=== PATIENT | male | born 1930 | race Caucasian/White ===

== ENCOUNTER 2018-03-19 19:21 | Inpatient (IN) | payer OTHER ==
[~2018-03-19] VITALS: Ht 182.9 cm; Wt 52.2 kg
[~2018-03-19 19:21] MED LIST: ADVAIR 250-501 EACH; ATORVASTATIN CA10 MG PO; ATORVASTATIN CA20 MG PO; BACTRIM DS TAB1 EACH PO; CEFPODOXIME PR100 MG PO; FINASTERIDE5 MG PO; GABAPENTIN400 MG PO; HYDROCORTISONE20 MG PO; K-DUR20 ME1 GT; LASIX20 MG PO; LEVAQUIN500 MG PO; LYRICA25 MG PO; METHIMAZOLE10 MG PO; OMEPRAZOLE40 MG PO; ONDANSETRO4 MG/UDTAB SL; PANTOPRAZOLE SO40 MG PO; POTASSIUM CHLO20 ME1 PO; PROPRANOLOL HCL20 MG PO; REGLAN10 MG PO; ROPINIROLE HC0.25 MG PO; SINEMET 25-1001 EACH PO; SULFAMETHOXAZO1 EAC1 PO; TYLENOL WITH C1 EACH PO; WARFARIN SODIU7.5 MG PO; WARFARIN SODIUM PO; Z FERROUS GLUCON PO; Z NEURONTIN PO; Z REQUIP PO; Z.0.ADVAIR 250-501 E IH; Z.0.COUMADIN7.5 MG PO; Z.0.FINASTERIDE5 MG PO; Z.0.LASIX20 MG PO; Z.0.NEURONTIN400 MG PO; Z.0.ULTRAM50 MG PO; [UNRECOGNIZED DRUG - OTHER] OP; [UNRECOGNIZED DRUG - OTHER] PO
--- OUTSIDE RECORDS SUMMARY | 2018-03-19 19:25 | XMS REPORT | Clinical Summary ---
Author Author YAHAIRA Juxinli [facility] [employer] [facility] Address Unknown Phone Unavailable Care Team Providers Care A R Collections Rep Name Role Phone Kev Crowell MD PCP Unavailable YolynBoston barba Unavailable Allergies No Known Allergies Medications End Date Status Medication Sig Dispensed Refills Start Date Active furosemide (LASIX) 20 MG Take 20 mg by 0 tablet mouth daily . Active HYDROcodone-acetaminophen Take 1 tablet 0 (NORCO 5-325) 5-325 mg by mouth per tablet every 6 (six) hours as needed for Pain. Active rOPINIRole (REQUIP) 0.25 Take 0.75 mg 0 MG tablet by mouth nightly. Active finasteride (PROSCAR) 5 Take 5 mg by 0 mg tablet mouth daily. Active carbidopa-levodopa Take 1 tablet 0 (SINEMET CR) 25-100 mg by mouth 2 per tablet (two) times daily . Active pantoprazole (PROTONIX) Take 40 mg by 0 40 MG tablet mouth daily. Active atorvastatin (LIPITOR) 20 Take 20 mg by 0 MG tablet mouth daily. Active mirabegron (MYRBETRIQ) 50 Take 50 mg by 0 mg Tb24 ER tablet mouth daily. Active apixaban (ELIQUIS) 2.5 mg Take 2.5 mg 0 Tab tablet by mouth 2 (two) times daily. Active propranolol (INDERAL) 40 Take 1 tablet 60 tablet 0 03/10/201 MG tablet (40 mg total) 8 by mouth 2 (two) times daily. Active methIMAzole (TAPAZOLE) 10 Take 0.5 30 tablet 0 03/10/201 MG tablet tablets (5 mg 8 total) by mouth daily. 03/07/2018 Discontinued gabapentin (NEURONTIN) Take 800 mg 0 400 MG capsule by mouth 2 (two) times daily . 03/07/2018 Discontinued calcium carbonate-vitamin Take 1 tablet 0 D2 500 mg(1,250mg) -200 by mouth unit tablet daily. 03/07/2018 Discontinued potassium chloride SA Take 20 mEq 0 (K-DUR,KLOR-CON) 20 MEQ by mouth tablet daily. 03/07/2018 Discontinued clotrimazole-betamethason Apply 0 e (LOTRISONE) 1-0.05 % topically 2 lotion (two) times daily. 03/07/2018 Discontinued levalbuterol (XOPENEX Inhale 1 puff 0 HFA) 45 mcg/actuation by mouth via inhaler inhaler every 6 (six) hours as needed for Wheezing. 03/07/2018 Discontinued phenazopyridine Take 200 mg 0 (PYRIDIUM) 200 MG tablet by mouth 3 (three) times daily as needed for Pain. 03/07/2018 Discontinued silver sulfADIAZINE Apply 0 (SILVADENE, SSD) 1 % topically cream daily. 03/07/2018 Discontinued TiZANidine (ZANAFLEX) 2 Take 2 mg by 0 MG capsule mouth 3 (three) times daily. 03/07/2018 Discontinued triamcinolone (KENALOG) Apply 0 0.1 % topical cream topically 2 (two) times daily to affected area. . 03/07/2018 Discontinued zinc oxide 20 % ointment Apply 0 topically as needed for Dry Skin. 03/07/2018 Discontinued warfarin (COUMADIN) 7.5 Take 1 tablet 1 tablet 0 04/08/201 MG tablet (7.5 mg 5 total) by mouth daily Restart Warfarin in 3 days if urine is visibly clear/free of blood.. 03/10/2018 Discontinued methIMAzole (TAPAZOLE) 10 Take 5 mg by 0 MG tablet mouth daily. 03/10/2018 Discontinued propranolol (INDERAL) 20 Take 20 mg by 0 MG tablet mouth 2 (two) times daily. Active Problems Problem Noted Date Graves disease 03/08/2018 Decubitus ulcer of sacral region, stage 2 03/08/2018 Severe protein-calorie malnutrition 03/08/2018 Atrial fibrillation with RVR 03/07/2018 Pulmonary fibrosis 03/07/2018 Gastroesophageal reflux disease without esophagitis 03/07/2018 Parkinson's disease 03/07/2018 Dysphonia 03/07/2018 Compression fracture of T12 vertebra 09/03/2013 Spinal stenosis of lumbar region 09/03/2013 AAA (abdominal aortic aneurysm) without rupture 09/03/2013 Essential tremor 09/03/2013 CRI (chronic renal insufficiency) 09/03/2013 Lumbago 09/02/2013 Atrial fibrillation 09/02/2013 COPD (chronic obstructive pulmonary disease) 09/02/2013 Dementia 09/02/2013 Diabetes type 2, controlled 09/02/2013 Gait disorder Encounters Care Team Description Date Type Specialty Salma, DO Janine Auguste Thai Duc, MD Atrial fibrillation with RVR (HCC) (Primary Dx); Atrial fibrillation, unspecified type (HCC); Dementia without behavioral disturbance, unspecified dementia type; AAA (abdominal aortic aneurysm) without rupture (HCC); Chronic renal impairment, unspecified CKD stage; Gait disorder 03/07/2018 Hospital Cardiology - Encounter 03/10/2018 03/07/2018 Travel 03/07/2018 Orders Only General Internal Medicine after 03/18/2017 Social History Date Tobacco Use Types Packs/Day Years Used Never Smoker Smokeless Tobacco: Never Used Alcohol Use Drinks/Week oz/Week Comments No Sex Assigned at Date Recorded Not on file Industry Job Start Date Occupation Not on file Not on file Not on file Travel End Travel History Travel Start No recent travel history available. Last Filed Vital Signs Time Taken Vital Sign Reading 03/10/2018 7:21 AM MANUFACTURING EXECUTIVE Blood Pressure 110/62 03/10/2018 7:21 AM MANUFACTURING EXECUTIVE Pulse 97 03/10/2018 7:21 AM MANUFACTURING EXECUTIVE Temperature 36.6 C (97.9 F) 03/10/2018 7:21 AM MANUFACTURING EXECUTIVE Respiratory Rate 20 03/10/2018 7:21 AM MANUFACTURING EXECUTIVE Oxygen Saturation 98% - Inhaled Oxygen - Concentration 03/07/2018 2:27 PM MANUFACTURING EXECUTIVE Weight 63.5 kg (140 lb) 03/07/2018 2:27 PM MANUFACTURING EXECUTIVE Height 177.8 cm (5' 10") 03/07/2018 2:27 PM MANUFACTURING EXECUTIVE Body Mass Index 20.09 Plan of Treatment Health Maintenance Due Date Last Done Comments INFLUENZA VACCINE 01/16/2018 Procedures Comments Procedure Name Priority Date/Time Associated Diagnosis RHYTHM STRIP - SCAN 03/14/2018 9:10 AM MANUFACTURING EXECUTIVE T4, FREE Routine 03/08/2018 12:03 AM MANUFACTURING EXECUTIVE HEPATIC FUNCTION PANEL Routine 03/08/2018 12:03 AM MANUFACTURING EXECUTIVE BASIC METABOLIC PANEL (7) Routine 03/08/2018 12:03 AM MANUFACTURING EXECUTIVE TROPONIN I STAT 03/08/2018 12:03 AM MANUFACTURING EXECUTIVE TSH/FREE T4 IF INDICATED Routine 03/08/2018 12:03 AM MANUFACTURING EXECUTIVE ED ECG INTERPRETATION Routine 03/07/2018 5:05 PM MANUFACTURING EXECUTIVE CRITICAL CARE Routine 03/07/2018 5:05 PM MANUFACTURING EXECUTIVE ECG 12-LEAD Routine 03/07/2018 4:16 PM MANUFACTURING EXECUTIVE ECG 12-LEAD Routine 03/07/2018 4:16 PM MANUFACTURING EXECUTIVE Procedure Note - Interface, External Ris In - 03/07/2018 8:06 PM MANUFACTURING EXECUTIVE Ventricula r Rate 112 BPM Atrial Rate 94 BPM QRS Duration 82 ms Q-T Interval 334 ms QTC Calculatio n(Bazett) 455 ms R Junction 20 degrees T Junction 21 degrees Atrial fibrillati on with rapid ventricula r response with premature ventricula r or aberrantly conducted complexes Anterior infarct (cited on or before 8) ST & T wave abnormalit y, consider lateral ischemia or digitalis effect Abnormal ECG When compared with ECG of 8 14:28, RSR' pattern in V1 is no longer Present XR CHEST 1 VIEW STAT 03/07/2018 PORTABLE/BEDSIDE 3:22 PM MANUFACTURING EXECUTIVE POCT-LACTIC ACID, VENOUS Routine 03/07/2018 3:14 PM MANUFACTURING EXECUTIVE CBC W/PLT COUNT & AUTO STAT 03/07/2018 DIFFERENTIAL 3:09 PM MANUFACTURING EXECUTIVE BASIC METABOLIC PANEL (7) STAT 03/07/2018 3:09 PM MANUFACTURING EXECUTIVE B-TYPE NATRIURETIC FACTOR STAT 03/07/2018 (BNP) 3:09 PM MANUFACTURING EXECUTIVE TROPONIN I STAT 03/07/2018 3:09 PM MANUFACTURING EXECUTIVE CBC W/PLT COUNT & AUTO STAT 03/07/2018 DIFFERENTIAL 3:09 PM MANUFACTURING EXECUTIVE ECG 12-LEAD Routine 03/07/2018 2:28 PM MANUFACTURING EXECUTIVE ECG 12-LEAD Routine 03/07/2018 2:28 PM MANUFACTURING EXECUTIVE Procedure Note - Interface, External Ris In - 03/07/2018 7:05 PM MANUFACTURING EXECUTIVE Ventricula r Rate 128 BPM Atrial Rate 129 BPM QRS Duration 84 ms Q-T Interval 316 ms QTC Calculatio n(Bazett) 461 ms R Junction 92 degrees T Junction -39 degrees Atrial fibrillati on with rapid ventricula r response Rightward axis RSR' or QR pattern in V1 suggests right ventricula r conduction delay Cannot rule out Anterior infarct , age undetermin ed Marked ST abnormalit y, possible inferior subendocar dial injury Abnormal ECG When compared with ECG of 5 16:22, Vent. rate has increased BY 70 BPM RSR' pattern in V1 has replaced Incomplete left bundle branch block after 03/18/2017 Results * RHYTHM STRIP - SCAN (03/14/2018 9:10 AM MANUFACTURING EXECUTIVE) Narrative Performed At * TSH/Free T4 If Indicated (03/08/2018 12:03 AM MANUFACTURING EXECUTIVE) TSH 0.00 (L) 0.35 - 4.94 uIU/mL [facility] Specimen Blood - Arm, Right Performing Organization Address [facility] Phone Number [facility] [address] [place] [address] [phone] [place] [address] * Troponin I (03/08/2018 12:03 AM MANUFACTURING EXECUTIVE) Only the most recent of 2 results within the time period is included. Troponin I 0.02 0.00 - 0.03 ng/mL [facility] Specimen Blood - Arm, Right Performing Organization Address [facility] Phone Number [facility] [address] [place] [address] [facility] * T4, free (03/08/2018 12:03 AM MANUFACTURING EXECUTIVE) Free T4 2.84 (H) 0.70 - 1.48 ng/dL [facility] Specimen Blood - Arm, Right Performing Organization Address [facility] Phone Number [facility] [address] [place] [address] [phone] [place] [address] * Hepatic function panel (03/08/2018 12:03 AM MANUFACTURING EXECUTIVE) Protein, Total 5.9 (L) 6.0 - 8.3 gm/dL [facility] Albumin 3.0 (L) 3.5 - 5.0 g/dL [facility] Total Bilirubin 1.2 0.2 - 1.2 mg/dL [facility] Bilirubin, Direct 0.8 (H) 0.1 - 0.5 mg/dL [facility] Alkaline Phosphatase 72 40 - 150 U/L [facility] AST 18 5 - 34 U/L [facility] ALT <6 (L) 6 - 55 U/L [facility] Specimen Blood - Arm, Right Performing Organization Address City/State/Zipcode Phone Number [facility] [address] [place] [address] [phone] [place] [address] * Basic Metabolic Panel (03/08/2018 12:03 AM MANUFACTURING EXECUTIVE) Only the most recent of 2 results within the time period is included. Sodium 136 136 - 145 meq/L [facility] Potassium 3.7 3.5 - 5.1 meq/L [facility] Chloride 104 98 - 107 meq/L [facility] CO2 25 22 - 29 meq/L [facility] BUN 32 (H) 7 - 21 mg/dL [facility] Creatinine 0.83 0.57 - 1.25 mg/dL [facility] Glucose 114 (H) 70 - 105 mg/dL [facility] Calcium 10.0 8.4 - 10.2 mg/dL [facility] EGFR 88Comment: ESTIMATED GFR IS mL/min/1.73 sq m [facility] NOT ACCURATE CREATININE [facility] CLEARANCE IN PREDICTING GLOMERULAR FILTRATION RATE. ESTIMATED GFR IS NOT APPLICABLE FOR DIALYSIS PATIENTS. Specimen Blood - Arm, Right Performing Organization Address City/State/Zipcode Phone Number [facility] [address] [place] [address] [facility] * ECG/EKG Interpretation (03/07/2018 5:05 PM MANUFACTURING EXECUTIVE) Narrative Performed At Lily Marsh DO 03/12/2018 10:06 PM ECG/EKG Interpretation Date/Time: 03/12/2018 10:06 PM Performed by: Lily Marsh DO Authorized by: Daryn Mehta MD The ECG was interpreted by ED physician. This ECG was not compared with previous ECG(s).The ECG is interpreted as atrial fibrillation. Rate is tachycardic. T waves abnormal. Junction is normal. Other findings: no other findings. Right sided lead use: right-sided leads not used. Left sided lead use: Posterior leads were not used. Clinical Impression: abnormal ECGECG reviewed and does not meet STEMI criteria. * CRITICAL CARE (03/07/2018 5:05 PM MANUFACTURING EXECUTIVE) Narrative Performed At Lily Marsh DO 03/12/2018 10:06 PM Critical Care Performed by: Lily Marsh DO Authorized by: Daryn Mehta MD Total critical care time: 60 minutes Critical care time was exclusive of separately billable procedures and treating other patients. Critical care was necessary to treat or prevent imminent or life-threatening deterioration of the following conditions: cardiac failure, shock, circulatory failure and renal failure. Critical care was time spent personally by me on the following activities: blood draw for specimens, discussions with consultants, gastric intubation, evaluation of patient's response to treatment, obtaining history from patient or surrogate, ordering and review of laboratory studies, pulse oximetry, ordering and performing treatments and interventions, examination of patient, discussions with primary provider, ordering and review of radiographic studies, re-evaluation of patient's condition, transcutaneous pacing and review of old charts. Comments: afib with RVR and sob sent from clinic now. * ECG 12 lead (03/07/2018 4:16 PM MANUFACTURING EXECUTIVE) Only the most recent of 2 results within the time period is included. Narrative Performed At Ventricular Rate 112 BPM GE MUSE Atrial Rate 94 BPM QRS Duration 82 ms Q-T Interval 334 ms QTC Calculation(Bazett) 455 ms R Junction 20 degrees T Junction 21 degrees Atrial fibrillation with rapid ventricular response with premature ventricular or aberrantly conducted complexes Anterior infarct (cited on or before 07-MAR-2018) ST & T wave abnormality, consider lateral ischemia Abnormal ECG When compared with ECG of 07-MAR-2018 14:28, RSR' pattern in V1 is no longer Present Confirmed by Nicol TAI MICHAEL ([id number]) on 03/08/2018 7:01:30 AM Procedure Note Interface, External Ris In - 03/08/2018 7:01 AM MANUFACTURING EXECUTIVE Ventricular Rate 112 BPM Atrial Rate 94 BPM QRS Duration 82 ms Q-T Interval 334 ms QTC Calculation(Bazett) 455 ms R Junction 20 degrees T Junction 21 degrees Atrial fibrillation with rapid ventricular response with premature ventricular or aberrantly conducted complexes Anterior infarct (cited on or before 07-MAR-2018) ST & T wave abnormality, consider lateral ischemia Abnormal ECG When compared with ECG of 07-MAR-2018 14:28, RSR' pattern in V1 is no longer Present Confirmed by Nicol TAI MICHAEL ([id number]) on 03/08/2018 7:01:30 AM Performing Organization Address City/State/Zipcode Phone Number [facility] * XR chest 1 view portable / bedside (03/07/2018 3:22 PM MANUFACTURING EXECUTIVE) Narrative Performed At FINAL REPORT [employer] AP chest HISTORY: Generalized weakness COMPARISON: 08/23/2014 IMPRESSION: Cardiomegaly. Diffuse prominence of interstitial markings similar to previous. No focal infiltrate. No large effusion. No pneumothorax. Signed: Roxi Bravo MD Report Verified Date/Time:03/07/2018 15:37:36 Reading Location: [address] Radiology Reading Room Procedure Note Interface, External Ris In - 03/07/2018 3:39 PM MANUFACTURING EXECUTIVE FINAL REPORT AP chest HISTORY: Generalized weakness COMPARISON: 08/23/2014 IMPRESSION: Cardiomegaly. Diffuse prominence of interstitial markings similar to previous. No focal infiltrate. No large effusion. No pneumothorax. Signed: Roxi Bravo MD Report Verified Date/Time: 03/07/2018 15:37:36 Reading Location: [address] Radiology Reading Room Performing Organization Address City/State/Zipcode Phone Number [facility] * POC-Lactic Acid, Venous (03/07/2018 3:14 PM MANUFACTURING EXECUTIVE) POC-Lactic Acid, Venous 1.5Comment: TESTED AT [facility] 0.9 - 1.7 mmol/L [place] [id number] [facility] Specimen Blood Performing Organization Address City/State/Zipcode [place] [address] [facility] * CBC with platelet count + automated diff (03/07/2018 3:09 PM MANUFACTURING EXECUTIVE) WBC 7.2 3.5 - 10.5 K/L [facility] RBC 4.03 (L) 4.63 - 6.08 M/L [facility] Hemoglobin 13.0 (L) 13.7 - 17.5 GM/DL [facility] Hematocrit 40.4 40.1 - 51.0 % [facility] MCV 100.2 (H) 79.0 - 92.2 fL [facility] MCH 32.3 (H) 25.7 - 32.2 pg [facility] MCHC 32.2 (L) 32.3 - 36.5 GM/DL [facility] RDW 12.7 11.6 - 14.4 % [facility] Platelets 200 150 - 450 K/CU MM [facility] MPV 9.7 9.4 - 12.4 fL [facility] nRBC 0 0 - 0 /100 WBC [facility] % Neutros 72 % [facility] % Lymphs 18 % [facility] % Monos 9 % [facility] % Eos 1 % [facility] % Baso 0 % [facility] # Neutros 5.14 1.78 - 5.38 K/L [facility] # Lymphs 1.27 (L) 1.32 - 3.57 K/L [facility] # Monos 0.64 0.30 - 0.82 K/L [facility] # Eos 0.08 0.04 - 0.54 K/L [facility] # Baso 0.02 0.01 - 0.08 K/L [facility] Immature 0 0 - 1 % [facility] Granulocytes-Relative [facility] Specimen Blood - Arm, Right Performing Organization Address City/[facility]/Zipcode Phone Number [facility] [address] [place] [address] [facility] * B-type Natriuretic Factor (BNP) (03/07/2018 3:09 PM MANUFACTURING EXECUTIVE) BNP 284 (H) 0 - 100 pg/mL [facility] Specimen Blood - Arm, Right Performing Organization Address City/State/Zipcode Phone Number [facility] [address] [place] [address] [facility] after 03/18/2017 Insurance Payer Benefit Subscriber ID Type Phone Address Plan / Group [employer] [facility] Advance Directives For more information, please contact: [address] [address] Date Inactivated Comments Code Status Date Activated Partial Code 03/07/2018 6:23 PM This code status was determined by: Patient Drug Protocol After Arrest Occurs? No Mechanical Ventilation with Intubation? No Bag/Mask? No Internal/External Pacemaker? No Transfer to Critical Care? No Chest Compressions? No Defibrillation/Cardioversion? No 03/07/2018 6:23 PM Full Code 03/07/2018 4:58 PM This code status was determined by: Patient 09/05/2013 4:20 PM All possible means of support, including: cardiac massage, mechanical ventilation, and defibrillation will be used to support life. Code ONE 09/03/2013 12:38 AM
--- OUTSIDE RECORDS SUMMARY | 2018-03-19 19:25 | XMS REPORT ---
Author Author [facility] Address Unknown Phone Unavailable Care Team Providers Care Remote Sensing Specialist Name Role Phone SUSANNAHJUANITA Unavailable Unavailable Problems This patient has no known problems. Allergies, Adverse Reactions, Alerts This patient has no known allergies or adverse reactions. Medications This patient has no known medications. Results Test Description Test Time Test Comments Text Results Atomic Results Result Comments T4, FREE 2018-03-08 01:32:00 FREE T4 (BEAKER) (test ddac=229) 2.84 ng/dL 0.70-1.48 TSH/FREE T4 IF [id number] 00:56:00* Test Item Value Reference Range Comments THYROID STIMULATING HORMONE (BEAKER) (test gajz=443) 0.00 uIU/mL 0.35-4.94 TROPONIN [id number] 00:39:00* Test Item Value Reference Range Comments TROPONIN I (BEAKER) (test dqyt=046) 0.02 ng/mL 0.00-0.03 BASIC METABOLIC [id number] 00:33:00* Test Item Value Reference Range Comments SODIUM (BEAKER) (test mxky=854) 136 meq/L 136-145 POTASSIUM (BEAKER) (test uecq=067) 3.7 meq/L 3.5-5.1 CHLORIDE (BEAKER) (test vfml=048) 104 meq/L 98-107 CO2 (BEAKER) (test noqa=816) 25 meq/L 22-29 BLOOD UREA NITROGEN (BEAKER) (test ntfh=358) 32 mg/dL 7-21 CREATININE (BEAKER) (test jzbn=033) 0.83 mg/dL 0.57-1.25 GLUCOSE RANDOM (BEAKER) (test azhl=026) 114 mg/dL 70-105 CALCIUM (BEAKER) (test zoet=079) 10.0 mg/dL 8.4-10.2 EGFR (BEAKER) (test ngqu=2949) 88 mL/min/1.73 sq m ESTIMATED GFR IS NOT ACCURATE CREATININE CLEARANCE IN PREDICTING GLOMERULAR FILTRATION RATE. ESTIMATED GFR IS NOT APPLICABLE FOR DIALYSIS PATIENTS. HEPATIC FUNCTION [id number] 00:33:00* Test Item Value Reference Range Comments TOTAL PROTEIN (BEAKER) (test lxas=844) 5.9 gm/dL 6.0-8.3 ALBUMIN (BEAKER) (test snea=9244) 3.0 g/dL 3.5-5.0 BILIRUBIN TOTAL (BEAKER) (test nult=161) 1.2 mg/dL 0.2-1.2 BILIRUBIN DIRECT (BEAKER) (test kool=111) 0.8 mg/dL 0.1-0.5 ALKALINE PHOSPHATASE (BEAKER) (test mtyk=376) 72 U/L 40-150 AST (SGOT) (BEAKER) (test jfhb=462) 18 U/L 5-34 ALT (SGPT) (BEAKER) (test xhrt=553) < U/L 6-55 B-TYPE NATRIURETIC FACTOR (BNP)2018-03-07 15:41:00* Test Item Value Reference Range Comments B-TYPE NATRIURETIC PEPTIDE (BEAKER) (test sbku=165) 284 pg/mL 0-100 TROPONIN [id number] 15:40:00* Test Item Value Reference Range Comments TROPONIN I (BEAKER) (test iqah=092) 0.01 ng/mL 0.00-0.03 RAD, CHEST, 1 VIEW, NON [id number] 15:37:00Reason for exam:->GENERALIZED WEAKNESS, NOT ASSOCIATED WITH EXTREMITIESShould this be performed at the bedside?->YesFINAL REPORT AP chest HISTORY: Generalized weakness COMPARISON: 08/23/2014 IMPRESSION:Cardiomegaly. Diffuse prominence of interstitial markings similar to previous. No focal infiltrate. No large effusion. No pneumothorax. Signed: Roxi Wells MDReport Verified Date/Time: 03/07/2018 15:37:36 Reading Location: [address] Radiology Reading Room C METABOLIC [id number] 15:33:00* Test Item Value Reference Range Comments SODIUM (BEAKER) (test rhhl=749) 137 meq/L 136-145 POTASSIUM (BEAKER) (test sblc=460) 4.3 meq/L 3.5-5.1 CHLORIDE (BEAKER) (test slgj=874) 103 meq/L 98-107 CO2 (BEAKER) (test uyro=754) 26 meq/L 22-29 BLOOD UREA NITROGEN (BEAKER) (test jfot=623) 34 mg/dL 7-21 CREATININE (BEAKER) (test bjfn=345) 0.93 mg/dL 0.57-1.25 GLUCOSE RANDOM (BEAKER) (test qhqz=290) 123 mg/dL 70-105 CALCIUM (BEAKER) (test zxpl=332) 10.5 mg/dL 8.4-10.2 EGFR (BEAKER) (test egzu=7241) 77 mL/min/1.73 sq m ESTIMATED GFR IS NOT ACCURATE CREATININE CLEARANCE IN PREDICTING GLOMERULAR FILTRATION RATE. ESTIMATED GFR IS NOT APPLICABLE FOR DIALYSIS PATIENTS. CBC W/PLT COUNT & AUTO [id number] 15:18:00* Test Item Value Reference Range Comments WHITE BLOOD CELL COUNT (BEAKER) (test enfd=853) 7.2 K/ L 3.5-10.5 RED BLOOD CELL COUNT (BEAKER) (test qrrr=385) 4.03 M/ L 4.63-6.08 HEMOGLOBIN (BEAKER) (test ambg=375) 13.0 GM/DL 13.7-17.5 HEMATOCRIT (BEAKER) (test bldy=124) 40.4 % 40.1-51.0 MEAN CORPUSCULAR VOLUME (BEAKER) (test rcik=915) 100.2 fL 79.0-92.2 MEAN CORPUSCULAR HEMOGLOBIN (BEAKER) (test rjho=687) 32.3 pg 25.7-32.2 MEAN CORPUSCULAR HEMOGLOBIN CONC (BEAKER) (test otqa=816) 32.2 GM/DL 32.3-36.5 RED CELL DISTRIBUTION WIDTH (BEAKER) (test amdr=669) 12.7 % 11.6-14.4 PLATELET COUNT (BEAKER) (test obef=330) 200 K/CU MM 150-450 MEAN PLATELET VOLUME (BEAKER) (test qrfq=840) 9.7 fL 9.4-12.4 NUCLEATED RED BLOOD CELLS (BEAKER) (test bcww=920) 0 /100 WBC 0-0 NEUTROPHILS RELATIVE PERCENT (BEAKER) (test qddh=498) 72 % LYMPHOCYTES RELATIVE PERCENT (BEAKER) (test reer=635) 18 % MONOCYTES RELATIVE PERCENT (BEAKER) (test wbrf=798) 9 % EOSINOPHILS RELATIVE PERCENT (BEAKER) (test rvin=895) 1 % BASOPHILS RELATIVE PERCENT (BEAKER) (test vbqc=317) 0 % NEUTROPHILS ABSOLUTE COUNT (BEAKER) (test ckrf=993) 5.14 K/ L 1.78-5.38 LYMPHOCYTES ABSOLUTE COUNT (BEAKER) (test uszn=068) 1.27 K/ L 1.32-3.57 MONOCYTES ABSOLUTE COUNT (BEAKER) (test mojw=899) 0.64 K/ L 0.30-0.82 EOSINOPHILS ABSOLUTE COUNT (BEAKER) (test vdhe=822) 0.08 K/ L 0.04-0.54 BASOPHILS ABSOLUTE COUNT (BEAKER) (test tqsv=546) 0.02 K/ L 0.01-0.08 IMMATURE GRANULOCYTES-RELATIVE PERCENT (BEAKER) (test bkmm=0853) 0 % 0-1 POCT-LACTIC ACID, [id number] 15:17:00* Test Item Value Reference Range Comments POC-LACTIC ACID, VENOUS (BEAKER) (test mhsd=2886) 1.5 mmol/L 0.9-1.7 TESTED AT [facility] [address] [facility] [id number]
[2018-03-19] MEDS ORDERED: ONDANSETRON HCL INJ 2 MG/ML VIAL ONE (19:55)
[2018-03-19] MEDS ORDERED: SODIUM CHLORIDE 0.9% 1000ML 1,000 ML ONE (19:59)
[2018-03-19] MEDS ORDERED: SODIUM CHLORIDE 0.9% 1000ML 1,000 ML IV STA (20:02)
[2018-03-19] MEDS ORDERED: PANTOPRAZOLE 40 MG 10ML VIAL IV STA (20:02)
[2018-03-19] MEDS ORDERED: ONDANSETRON HCL INJ 2 MG/ML VIAL IV STA (20:02)
[2018-03-19 20:25] LABS: BASOPHILS % 0.1 % (0.0-1.0); HEMATOCRIT 41.9 % (38.2-49.6); LYMPHOCYTES # (AUTO) 1.3 (1.0-3.2); LYMPHOCYTES % 7.4 % (18.0-39.1); MEAN CORPUSCULAR HEMOGLOBIN 32.7 pg (28-32); MEAN CORPUSCULAR HGB CONC 33.4 g/dL (31-35); MEAN CORPUSCULAR VOLUME 97.9 fL (81-99); MONOCYTES # (AUTO) 1.2 (0.2-0.8); MONOCYTES % 7.1 % (4.4-11.3); NEUTROPHILS # (AUTO) 14.6 (2.1-6.9); NEUTROPHILS % 84.9 % (38.7-80.0); PLATELET COUNT 329 x10e3/uL (140-360); RED BLOOD COUNT 4.28 x10e6/uL (4.3-5.7); RED CELL DISTRIBUTION WIDTH 13.1 % (11.7-14.4)
[2018-03-19 20:34] LABS: INR 1.05; PROTHROMBIN TIME 14.7 seconds (11.9-14.5)
[2018-03-19 20:35] LABS: PARTIAL THROMBOPLASTIN TIME 25.8 seconds (23.8-35.5)
[2018-03-19 20:41] LABS: ALBUMIN 3.1 g/dL (3.5-5.0); ALBUMIN/GLOBULIN RATIO 0.7 (0.8-2.0); ANION GAP 22.2 mmol/L (8-16); CALCIUM 10.9 mg/dL (8.4-10.2); CREATININE, SERUM 1.74 mg/dL (0.72-1.25); MAGNESIUM 2.3 MG/DL (1.3-2.1); POTASSIUM 4.2 mmol/L (3.5-5.1)
[2018-03-19 20:50] LABS: CREATINE KINASE MB 1.2 ng/mL (0-5.0)
[2018-03-19 20:59] LABS: B-TYPE NATRIURETIC PEPTIDE2 364.5 pg/mL (0-100)
[2018-03-19] MEDS ORDERED: DILTIAZEM HCL 5 MG/ML 5 ML VIAL IV STA (21:16)
--- NOTE | 2018-03-19 21:53 | Diagnostic Imaging Report ---
EXAM: CHEST SINGLE (PORTABLE), AP 1 view INDICATION: Nausea vomiting, abdominal pain COMPARISON: AP view of the chest October 23, 2010 FINDINGS: LINES/TUBES: None LUNGS: Chronic pulmonary fibrosis. No new consolidations. PLEURA: No effusions or pneumothorax. HEART AND MEDIASTINUM: Stable appearance. BONES AND SOFT TISSUES: No acute findings. IMPRESSION: No acute thoracic abnormality. Signed by: Dr. Lynette Santiago M.D. on 03/19/2018 9:50 PM
[2018-03-19] MEDS ORDERED: VANCOMYCIN 1GM/NS 250 ML 250 ML IV STA (22:38)
[2018-03-19] MEDS ORDERED: AMIODARONE HCL 150 MG/100 ML BAG IV ONE (22:45)
[2018-03-19] MEDS ORDERED: AMIODARONE HCL 360MG 200 ML IV SCH (22:45)
[2018-03-19] MEDS ORDERED: AMIODARONE HCL 150MG 100 ML IV SCH (22:45)
--- NOTE | 2018-03-19 22:56 | Diagnostic Imaging Report ---
EXAM: CT ABDOMEN AND PELVIS without IV CONTRAST INDICATION: Abdominal pain, palpable mass right upper quadrant COMPARISON: CT of the abdomen and pelvis without IV contrast February 20, 2013 and November 15, 2015 TECHNIQUE: The abdomen and pelvis were scanned using a multidetector helical scanner. Coronal and sagittal reformations were obtained. Dose modulation, iterative reconstruction, and/or weight based adjustment of the mA/kV was utilized to reduce the radiation dose to as low as reasonably achievable. Routine protocol performed. IV Contrast: None Oral Contrast: None CTDIvol has been reviewed. It is below the limits set by the Radiation Protocol Committee (RPC). FINDINGS: LOWER THORAX: Bibasilar peripheral fibrosis and left lower lobe traction bronchiectasis. Advanced emphysematous changes. LIVER: Several hypodensities in the liver, stable from prior exam and consistent with cysts. The largest is in the left lobe of the liver measuring 2.3 cm. BILIARY: Small layering gallstones without surrounding inflammation. Gallbladder hydrops. No ductal dilation. SPLEEN: No masses PANCREAS: Fatty replaced. ADRENALS: No nodules RIGHT KIDNEY: No nephroureterolithiasis or hydronephrosis. LEFT KIDNEY: No nephroureterolithiasis or hydronephrosis. Exophytic cyst measuring 1.7 cm anterior medial aspect. GI TRACT: No wall thickening or obstruction. VESSELS: Marked calcified atherosclerotic changes of the abdominal aorta and branches. There is an infrarenal abdominal aortic fusiform aneurysm arising 2.5 cm distal to the right renal vein and extending to the bifurcation. Maximum aneurysm diameter is 4.9 cm on axial plane with mild crescentic adherent thrombus right anterior lateral aspect. No evidence of rupture. 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 PERITONEUM/RETROPERITONEUM: No free air or fluid LYMPH NODES: No lymphadenopathy REPRODUCTIVE ORGANS: Normal BLADDER: Decompressed by suprapubic catheter. SOFT TISSUES: Normal BONES: Left hip arthroplasty. Osteoporosis with chronic L1 vertebral body fracture. IMPRESSION: 1. Infrarenal abdominal aortic aneurysm measuring 4.7 cm in maximum diameter. Aneurysm measured 4.2 cm in 2015 and 3.7 cm in 2012. For an aneurysm of this size, current recommendations are for follow-up imaging every 6 months with vascular consultation taking into consideration patient's clinical condition and any prior vascular consultations/recommendations. 2. Gallbladder hydrops and small gallstones. No evidence of inflammation. Signed by: Dr. Lynette Santiago M.D. on 03/19/2018 10:53 PM
[2018-03-19 23:12] LABS: CLARITY,URINE CLEAR (CLEAR)
[2018-03-19 23:13] LABS: BILIRUBIN,URINE 1+ (NEGATIVE); COLOR,URINE AMBER (YELLOW); KETONES,URINE TRACE (NEGATIVE); LEUKOCYTE ESTERASE ,URINE 1+ (NEGATIVE); NITRITE,URINE NEGATIVE (NEGATIVE); PROTEIN,URINE DIPSTICK 1+ (NEGATIVE); URINE UROBILINOGEN 1 mg/dL (0.2 - 1)
[2018-03-19 23:14] LABS: BACTERIA,URINE MANY /HPF; EPITHELIAL CELLS,URINE FEW /LPF
[2018-03-19] MEDS ORDERED: AMIODARONE 900MG 500 ML IV ONE (23:16)
[2018-03-19] MEDS ORDERED: MEROPENEM 1 GM VIAL ONE (23:19)
[2018-03-19] MEDS: MEROPENEM 1GRAM 1 GM in SODIUM CHLORIDE 0.9% 100 ML 100 ML IV SCH (23:44)
[2018-03-20] VITALS (36 sets, daily range): BP systolic 89–126; BP diastolic 55–92
[2018-03-20] MEDS ORDERED: AMIODARONE HCL 360MG 200 ML IV SCH
--- NOTE | 2018-03-20 00:25 | Diagnostic Imaging Report ---
EXAM: Right upper quadrant ultrasound INDICATION: Right upper quadrant mass. COMPARISON: CT of the abdomen and pelvis March 19, 2018 CT of the abdomen and pelvis without IV contrast November 15, 2015 TECHNIQUE: Transverse and longitudinal sonographic images of the right upper abdomen were obtained. FINDINGS: LIVER: 11.2 cm in the right midclavicular line. Normal echogenicity, normal contour, no masses. Main Portal Vein: Normal size with hepatopetal flow. GALLBLADDER: Gallbladder hydrops and sludge. No wall thickening or pericholecystic fluid. Negative sonographic Wilkins's sign. BILE DUCTS: No intra nor extra-hepatic dilation. Common bile duct measures 1.3 cm. PANCREAS: Not well visualized RIGHT KIDNEY: 7.4 cm in length Echogenicity: Increased Collecting System: No hydronephrosis Stones: None Cyst/Mass: None FREE FLUID: None in the right upper quadrant of the abdomen IMPRESSION: 1. The palpable abnormality in the right lower quadrant corresponds to a tortuous and ectatic right common iliac artery with adjacent abdominal aortic aneurysm better seen on prior CT. 2. Gallbladder hydrops and sludge. No evidence of acute cholecystitis. 3. The common bile duct is dilated to 1.[address]s that showed the common bile duct better than today's CT demonstrates that this is a stable finding since at least 2016. 4. Small and echogenic right kidney consistent with chronic medical renal disease. Signed by: Dr. Lynette Santiago M.D. on 03/20/2018 12:22 AM
[2018-03-20] MEDS ORDERED: FAMOTIDINE 20 MG/2 ML VIAL IV SCH (00:30)
--- OUTSIDE RECORDS SUMMARY | 2018-03-20 00:35 | XMS REPORT | Clinical Summary ---
Author Author YAHAIRA [employer] [facility] Address Unknown Phone Unavailable Care Team Providers Care Insurance Risk Surveyor Name Role Phone Kev Crowell MD PCP Unavailable [place] Unavailable Allergies No Known Allergies Medications [...] 03/07/2018 Orders Only General Internal Medicine after 03/19/2017 Social History Date Tobacco Use Types Packs/Day [...] Taken Vital Sign Reading 03/10/2018 7:21 AM LINER HELPER Blood Pressure 110/62 03/10/2018 7:21 AM LINER HELPER Pulse 97 03/10/2018 7:21 AM LINER HELPER Temperature 36.6 C (97.9 F) 03/10/2018 7:21 AM LINER HELPER Respiratory Rate 20 03/10/2018 7:21 AM LINER HELPER Oxygen Saturation 98% - Inhaled Oxygen - Concentration 03/07/2018 2:27 PM LINER HELPER Weight 63.5 kg (140 lb) 03/07/2018 2:27 PM LINER HELPER Height 177.8 cm (5' 10") 03/07/2018 2:27 PM LINER HELPER Body Mass Index 20.09 Plan of Treatment Health Maintenance Due Date Last Done Comments INFLUENZA VACCINE 01/16/2018 Procedures Comments Procedure Name Priority Date/Time Associated Diagnosis RHYTHM STRIP - SCAN 03/14/2018 9:10 AM LINER HELPER T4, FREE Routine 03/08/2018 12:03 AM LINER HELPER HEPATIC FUNCTION PANEL Routine 03/08/2018 12:03 AM LINER HELPER BASIC METABOLIC PANEL (7) Routine 03/08/2018 12:03 AM LINER HELPER TROPONIN I STAT 03/08/2018 12:03 AM LINER HELPER TSH/FREE T4 IF INDICATED Routine 03/08/2018 12:03 AM LINER HELPER ED ECG INTERPRETATION Routine 03/07/2018 5:05 PM LINER HELPER CRITICAL CARE Routine 03/07/2018 5:05 PM LINER HELPER ECG 12-LEAD Routine 03/07/2018 4:16 PM LINER HELPER ECG 12-LEAD Routine 03/07/2018 4:16 PM LINER HELPER Procedure Note - Interface, External Ris In - 03/07/2018 8:06 PM LINER HELPER Ventricula r Rate 112 BPM Atrial Rate 94 BPM QRS Duration 82 ms Q-T Interval 334 ms QTC Calculatio n(Bazett) 455 ms R Paramus 20 degrees T Paramus 21 degrees Atrial fibrillati on with rapid ventricula r response with premature ventricula r or aberrantly conducted complexes Anterior infarct (cited on or before 8) ST & T wave abnormalit y, consider lateral ischemia or digitalis effect Abnormal ECG When compared with ECG of 8 14:28, RSR' pattern in V1 is no longer Present XR CHEST 1 VIEW STAT 03/07/2018 PORTABLE/BEDSIDE 3:22 PM LINER HELPER POCT-LACTIC ACID, VENOUS Routine 03/07/2018 3:14 PM LINER HELPER CBC W/PLT COUNT & AUTO STAT 03/07/2018 DIFFERENTIAL 3:09 PM LINER HELPER BASIC METABOLIC PANEL (7) STAT 03/07/2018 3:09 PM LINER HELPER B-TYPE NATRIURETIC FACTOR STAT 03/07/2018 (BNP) 3:09 PM LINER HELPER TROPONIN I STAT 03/07/2018 3:09 PM LINER HELPER CBC W/PLT COUNT & AUTO STAT 03/07/2018 DIFFERENTIAL 3:09 PM LINER HELPER ECG 12-LEAD Routine 03/07/2018 2:28 PM LINER HELPER ECG 12-LEAD Routine 03/07/2018 2:28 PM LINER HELPER Procedure Note - Interface, External Ris In - 03/07/2018 7:05 PM LINER HELPER Ventricula r Rate 128 BPM Atrial Rate 129 BPM QRS Duration 84 ms Q-T Interval 316 ms QTC Calculatio n(Bazett) 461 ms R Paramus 92 degrees T Paramus -39 degrees Atrial fibrillati on with rapid [...] replaced Incomplete left bundle branch block after 03/19/2017 Results * RHYTHM STRIP - SCAN (03/14/2018 9:10 AM LINER HELPER) Narrative Performed At * TSH/Free T4 If Indicated (03/08/2018 12:03 AM LINER HELPER) TSH 0.00 (L) 0.35 - 4.94 uIU/mL [facility] Specimen Blood - Arm, Right Performing Organization Address [facility] Phone Number [facility] [address] [place] [address] [phone] [place] [address] * Troponin I (03/08/2018 12:03 AM LINER HELPER) Only the most recent of 2 results within the time period is included. Troponin I 0.02 0.00 - 0.03 ng/mL [facility] Specimen Blood - Arm, Right Performing Organization Address [facility] Phone Number [facility] [address] [place] [address] [facility] * T4, free (03/08/2018 12:03 AM LINER HELPER) Free T4 2.84 (H) 0.70 - 1.48 ng/dL [facility] Specimen Blood - Arm, Right Performing Organization Address [facility] Phone Number [facility] [address] [place] [address] [phone] [place] [address] * Hepatic function panel (03/08/2018 12:03 AM LINER HELPER) Protein, Total 5.9 (L) 6.0 - 8.3 gm/dL [facility] Albumin 3.0 (L) 3.5 - 5.0 g/dL [facility] Total Bilirubin 1.2 0.2 - 1.2 mg/dL [facility] Bilirubin, Direct 0.8 (H) 0.1 - 0.5 mg/dL [facility] Alkaline Phosphatase 72 40 - 150 U/L [facility] AST 18 5 - 34 U/L [facility] ALT <6 (L) 6 - 55 U/L [facility] Specimen Blood - Arm, Right Performing Organization Address City/State/Zipcode Phone Number [facility] [address] [place] [address] [phone] [place] [address] * Basic Metabolic Panel (03/08/2018 12:03 AM LINER HELPER) Only the most recent of 2 results within the time period is included. Sodium 136 136 - 145 meq/L [facility] Potassium 3.7 3.5 - 5.1 meq/L [facility] Chloride 104 98 - 107 meq/L [facility] CO2 25 22 - 29 meq/L [facility] BUN 32 (H) 7 - 21 mg/dL [facility] Creatinine 0.83 0.57 - 1.25 mg/dL [facility] Glucose 114 (H) 70 - 105 mg/dL [facility] Calcium 10.0 8.4 - 10.2 mg/dL [facility] EGFR 88Comment: ESTIMATED GFR IS mL/min/1.73 sq m [facility] NOT ACCURATE CREATININE [facility] CLEARANCE IN PREDICTING GLOMERULAR FILTRATION RATE. ESTIMATED GFR IS NOT APPLICABLE FOR DIALYSIS PATIENTS. Specimen Blood - Arm, Right Performing Organization Address City/State/Zipcode Phone Number [facility] [address] [place] [address] [facility] * ECG/EKG Interpretation (03/07/2018 5:05 PM LINER HELPER) Narrative Performed At Lily Marsh DO 03/12/2018 10:06 PM ECG/EKG Interpretation Date/Time: 03/12/2018 10:06 PM Performed by: Lily Marsh DO Authorized by: Daryn Mehta MD The ECG was interpreted by ED physician. This ECG was not compared with previous ECG(s).The ECG is interpreted as atrial fibrillation. Rate is tachycardic. T waves abnormal. Paramus is normal. Other findings: no other findings. Right sided lead use: right-sided leads not used. Left sided lead use: Posterior leads were not used. Clinical Impression: abnormal ECGECG reviewed and does not meet STEMI criteria. * CRITICAL CARE (03/07/2018 5:05 PM LINER HELPER) Narrative Performed At Lily Marsh DO 03/12/2018 [...] * ECG 12 lead (03/07/2018 4:16 PM LINER HELPER) Only the most recent of 2 results within the time period is included. Narrative Performed At Ventricular Rate 112 BPM GE MUSE Atrial Rate 94 BPM QRS Duration 82 ms Q-T Interval 334 ms QTC Calculation(Bazett) 455 ms R Paramus 20 degrees T Paramus 21 degrees Atrial fibrillation with rapid ventricular [...] External Ris In - 03/08/2018 7:01 AM LINER HELPER Ventricular Rate 112 BPM Atrial Rate 94 BPM QRS Duration 82 ms Q-T Interval 334 ms QTC Calculation(Bazett) 455 ms R Paramus 20 degrees T Paramus 21 degrees Atrial fibrillation with rapid ventricular response with premature ventricular or aberrantly conducted complexes Anterior infarct (cited on or before 07-MAR-2018) ST & T wave abnormality, consider lateral ischemia Abnormal ECG When compared with ECG of 07-MAR-2018 14:28, RSR' pattern in V1 is no longer Present Confirmed by Nicol TAI MICHAEL ([id number]) on 03/08/2018 7:01:30 AM Performing Organization Address City/State/Zipcode Phone Number [place] [employer] * XR chest 1 view portable / bedside (03/07/2018 3:22 PM LINER HELPER) Narrative Performed At FINAL REPORT [employer] AP chest HISTORY: Generalized weakness COMPARISON: 08/23/2014 IMPRESSION: Cardiomegaly. Diffuse prominence of interstitial markings similar to previous. No focal infiltrate. No large effusion. No pneumothorax. Signed: Roxi Bravo MD Report Verified Date/Time:03/07/2018 15:37:36 Reading Location: [address] Radiology Reading Room Procedure Note Interface, External Ris In - 03/07/2018 3:39 PM LINER HELPER FINAL REPORT AP chest HISTORY: Generalized weakness COMPARISON: 08/23/2014 IMPRESSION: Cardiomegaly. Diffuse prominence of interstitial markings similar to previous. No focal infiltrate. No large effusion. No pneumothorax. Signed: Roxi Bravo MD Report Verified Date/Time: 03/07/2018 15:37:36 Reading Location: [address] Radiology Reading Room Performing Organization Address City/State/Zipcode Phone Number [facility] * POC-Lactic Acid, Venous (03/07/2018 3:14 PM LINER HELPER) POC-Lactic Acid, Venous 1.5Comment: TESTED AT [facility] 0.9 - 1.7 mmol/L [place] [id number] [facility] Specimen Blood Performing Organization Address City/State/[place] [address] [facility] * CBC with platelet count + automated diff (03/07/2018 3:09 PM LINER HELPER) WBC 7.2 3.5 - 10.5 K/L [facility] RBC 4.03 (L) 4.63 - 6.08 M/L [facility] Hemoglobin 13.0 (L) 13.7 - 17.5 GM/DL [facility] Hematocrit 40.4 40.1 - 51.0 % [facility] MCV 100.2 (H) 79.0 - 92.2 fL [facility] MCH 32.3 (H) 25.7 - 32.2 pg [facility] MCHC 32.2 (L) 32.3 - 36.5 GM/DL [facility] RDW 12.7 11.6 - 14.4 % [facility] Platelets 200 150 - 450 K/CU MM [facility] MPV 9.7 9.4 - 12.4 fL [facility] nRBC 0 0 - 0 /100 WBC [facility] % Neutros 72 % [facility] % Lymphs 18 % [facility] % Monos 9 % [facility] % Eos 1 % [facility] % Baso 0 % [facility] # Neutros 5.14 1.78 - 5.38 K/L [facility] # Lymphs 1.27 (L) 1.32 - 3.57 K/L [facility] # Monos 0.64 0.30 - 0.82 K/L [facility] # Eos 0.08 0.04 - 0.54 K/L [facility] # Baso 0.02 0.01 - 0.08 K/L [facility] Immature 0 0 - 1 % [facility] Granulocytes-Relative [facility] Specimen Blood - Arm, Right Performing Organization Address City/[facility]/Zipcode Phone Number [facility] [address] [place] [address] [facility] * B-type Natriuretic Factor (BNP) (03/07/2018 3:09 PM LINER HELPER) BNP 284 (H) 0 - 100 pg/mL [facility] Specimen Blood - Arm, Right Performing Organization Address City/State/Zipcode Phone Number [facility] [address] [place] [address] [facility] after 03/19/2017 Insurance Payer Benefit Subscriber ID Type Phone Address Plan / Group [employer] TEX[employer] xxxxxxxxx [facility] Advance Directives For more information, please contact: [address] [address] Date Inactivated Comments Code Status [...]
[2018-03-20] MEDS: ONDANSETRON HCL INJ 2 MG/ML VIAL IV PRN (02:52)
[2018-03-20 04:57] LABS: BASOPHILS % 0.1 % (0.0-1.0); HEMATOCRIT 35.2 % (38.2-49.6); HEMOGLOBIN 11.8 g/dL (14.0-18.0); LYMPHOCYTES # (AUTO) 1.4 (1.0-3.2); LYMPHOCYTES % 7.9 % (18.0-39.1); MEAN CORPUSCULAR HEMOGLOBIN 32.9 pg (28-32); MEAN CORPUSCULAR HGB CONC 33.5 g/dL (31-35); MEAN CORPUSCULAR VOLUME 98.1 fL (81-99); MONOCYTES # (AUTO) 1.2 (0.2-0.8); MONOCYTES % 6.4 % (4.4-11.3); NEUTROPHILS # (AUTO) 15.2 (2.1-6.9); PLATELET COUNT 232 x10e3/uL (140-360); RED BLOOD COUNT 3.59 x10e6/uL (4.3-5.7); RED CELL DISTRIBUTION WIDTH 13.1 % (11.7-14.4)
[2018-03-20 05:21] LABS: ALBUMIN 2.5 g/dL (3.5-5.0); ALBUMIN/GLOBULIN RATIO 0.7 (0.8-2.0); CALCIUM 9.6 mg/dL (8.4-10.2); CREATININE, SERUM 2.01 mg/dL (0.72-1.25)
[2018-03-20 05:42] LABS: CREATINE KINASE MB 0.8 ng/mL (0-5.0)
[2018-03-20] MEDS ORDERED: MEROPENEM 1 GM VIAL ONE (09:24)
[2018-03-20] MEDS: MEROPENEM 1GRAM 1 GM in SODIUM CHLORIDE 0.9% 100 ML 100 ML IV SCH (09:30)
[2018-03-20] MEDS: FAMOTIDINE 20 MG/2 ML VIAL IV SCH ×2 (12:30→21:12)
--- NOTE | 2018-03-20 15:23 | Consultation ---
DATE OF CONSULTATION: March 20, 2018 REASON FOR CONSULTATION: Atrial fibrillation. HISTORY OF PRESENT ILLNESS: Mr. Toro is an 87-year-old gentleman with past medical history of hypertension, paroxysmal atrial fibrillation, hypercholesterolemia, history of severe osteoarthritis, BPH, Parkinson disease forgetfulness, perhaps mild cognitive impairment, status post suprapubic cath, abdominal aortic aneurysm under surveillance, most recently 4.9 cm on noninvasive imaging, history of hiatal hernia and gastritis, hyperthyroidism, recently started on methimazole therapy, and questionable idiopathic pulmonary fibrosis. The patient has been having failure to thrive symptoms over the past 6 months with decreased frequency of stools, early satiety, abdominal pain, nausea, vomiting, and again constipation. The family felt that he was impacted, and has undergone multiple de-impaction procedures by family over the span of the last several months, which has improved the lower abdominal pain that he has been experiencing. Most recently they feel that he is impacted from above, as they report he will eat only one or two bites, have severe abdominal pain and discomfort shortly after eating, and has been having vomiting. He has been on iron supplement therapy, and has noted that his vomitus has been kind of dark green to black, but watery in consistency. On account of his upper abdominal pain in the epigastric region, chills and malaise, he was brought to the hospital for further care and management. In the emergency room, he was noted to have an elevated white count and perhaps sepsis. Additionally, was noted to have atrial fibrillation with rapid ventricular response, and hence we were consulted for further care and management. I am seeing him at bedside today, and he is quite lethargic resting in bed at this current time. He appears relatively comfortable and his stomach appears to be soft on my exam. Unable to corroborate any history from him, as he is somnolent and history is largely provided by family. There does not seem to be a component of any chest pain or discomfort. In terms of his atrial fibrillation, sounds like he is relatively asymptomatic and he is not on any anticoagulant therapy. In terms of his abdominal aortic aneurysm, they are aware of it, and understand that it has been growing. We had a long discussion in terms of the clinical significance of abdominal aortic aneurysm also today at bedside. PAST MEDICAL HISTORY: 1. Hypertension, essential. 2. Paroxysmal atrial fibrillation with remote history of DC cardioversion. 3. Hypercholesterolemia. 4. Osteoarthritis. 5. History of diverticulosis. 6. BPH with status post suprapubic catheter placement. 7. Parkinson disease. 8. Cognitive impairment. 9. Peripheral arterial disease. 10. Abdominal aortic aneurysm. 11. Hyperthyroidism, recently started on methimazole. 12. Questionable idiopathic pulmonary fibrosis. PAST SURGICAL HISTORY: History of suprapubic hernia catheter placement. FAMILY HISTORY: Mother at 78 with Parkinson disease and was demented. Father at age of 57 with some type of cancer. SOCIAL HISTORY: He is a lifelong nonsmoker. No alcohol or illicit drug use. ALLERGIES: NO KNOWN DRUG ALLERGIES. HOME MEDICATIONS: 1. Atorvastatin 20 mg nightly. 2. Sinemet 25/100 mg t.i.d. 3. Finasteride 5 mg daily. 4. Advair 250/50 one dose inhaled b.i.d. 5. Lasix 20 mg daily. 6. Reglan 10 mg q.a.c. 7. Omeprazole 40 mg daily. 8. Zofran 4 mg q.8 h. p.r.n. 9. Protonix 40 mg daily. 10. Potassium chloride 20 mg daily. 11. Lyrica 25 mg t.i.d. 12. Propranolol 20 mg b.i.d. 13. Requip 0.25 mg nightly. REVIEW OF SYSTEMS: This is obtained from the family and not from the patient GENERAL: Positive for fatigue, malaise, unexplained weight loss, about 40 pounds, over the past 6 months. HEENT: No headaches or visual complaints, sore throat, stuffy nose. RESPIRATORY: No shortness of breath or pleuritic chest pain. CARDIOVASCULAR: No chest pain, no subjective palpitations despite atrial fibrillation. GI: Positive for abdominal pain, vomiting and impaction issues, as per HPI. : Positive for suprapubic catheter placement and BPH. MUSCULOSKELETAL: Positive for severe arthritis in low back and legs. ENDOCRINE; Positive for hyperthyroidism, was started on methimazole therapy. NEUROLOGIC: Forgetfulness. No history of TIA or stroke. The remainder of the review of systems unless otherwise mentioned. PHYSICAL EXAMINATION VITAL SIGNS: Height of 72 inches, weight of 123 pounds, BMI is 16.7. T max 99.1, pulse currently in the 80s, irregularly irregular, respiratory rate 18, O2 sat 99% on room air. Blood pressure is 112/64. GENERAL: This is a frail, emaciated gentleman who appears much older than stated age, who clearly exhibiting failure to thrive appearance. HEENT: Sunken eyelids, bitemporal wasting, poor dentition. NECK: No elevation of jugular venous pulsation. No carotid bruits. CARDIOVASCULAR: Irregularly, irregular rate and rhythm. Normal S1 and S2. A 1/6 systolic murmur in the left lower sternal border. LUNGS: Relatively clear to auscultation bilaterally. ABDOMEN: Hypoactive bowel sounds, rather soft surprisingly, nontender. Very skinny and scaphoid and also palpable pulsatile mass/aneurysm. Positive for suprapubic catheter. BACK: No costovertebral angle tenderness. EXTREMITIES: Warm with diminished pedal pulses. Skinny, no edema. NEUROLOGIC: Somnolent, in bed and limited exam. LABORATORY DATA: White count of 17.9, hemoglobin 11.8, hematocrit 35.2, platelets 232, sodium 141, potassium 4.0, chloride 98, bicarb 30, BUN 47, creatinine 2.01, glucose 172, calcium 9.6, AST 13, ALT 8, alkaline phosphatase 75, total bilirubin 1.3, total protein 6.0, albumin of 2.5. Troponin went from 0.049 to 0.050. BNP is 364. INR is 1.05. UA shows 6-10 white cells. Abdominal and pelvis CT reveals a 4.7 to 4.9 cm infrarenal abdominal aortic aneurysm, gallbladder hydrops and gallstones, no inflammation. Chest x-ray reveals no acute abnormalities. Abdominal ultrasound reveals common bile duct dilatation at 1.3 cm and echogenic small right kidney consistent with medical renal disease. EKG revealed atrial fibrillation with rapid ventricular response, diffuse ST depressions, perhaps subendocardial ischemia. DIAGNOSES 1. Severe sepsis likely GI source on broad-spectrum antibiotics. 2. Paroxysmal atrial fibrillation, by history. 3. Failure to thrive, weight loss and severe protein and calorie malnutrition. 4. Severe abdominal pain in the epigastric region of unclear etiology, but this is not related to his infrarenal abdominal aortic aneurysm . 5. Moderate to large infrarenal abdominal aortic aneurysm under surveillance. 6. Hypertension, essential. 7. Hypercholesterolemia. 8. Hyperthyroidism, recently started on methimazole therapy. 9. Parkinson disease. 10. Benign prostatic hypertrophy with suprapubic catheter. PLAN/RECOMMENDATIONS: 1. From a cardiovascular standpoint, will go ahead and continue amiodarone drip for now. Does not seem reliable for oral therapy and may cardiovert as his underlying inflammatory condition improves. 2. Will go ahead and consult GI per primary team wishes, and consulted Dr. Rehman. 3. Will check TSH to evaluate his hyperthyroid state. 4. Will check echo to evaluate his LV function. 5. In terms of his infrarenal abdominal aortic aneurysm, for the time being management will be largely conservative and no acute indication for any surgical or endovascular intervention at this time. 6. I will continue to adjust medications as clinical course dictates. Thank you for allowing me to see this patient. Job#: [id number] ITZEL
[2018-03-20] MEDS: SODIUM CHLORIDE 0.9% 1000ML 1,000 ML IV SCH ×2 (17:00→21:12)
--- NOTE | 2018-03-20 17:24 | Diagnostic Imaging Report ---
Examination: Esophagram. Clinical indication: Dysphagia. Technique: Thick liquid barium was ingested by mouth and fluoroscopic spot images of the upper esophagus were obtained in the lateral projection. Fluoroscopy time: Less than 1 minute Discussion: Examination is extremely limited secondary to patient inability to stand, necessitating use of a support chair, which only allows for imaging in the lateral position. In addition, the x ray unit cannot be dropped below the level of the thoracic inlet, again due to patient inability to stand and use of a support chair. The swallowing mechanism was grossly normal. No tracheal aspiration was noted upon the swallow. Minimal mass effect from cervical spine osteophytes on the posterior esophagus, without evidence of cervical esophageal stricture. The distal esophagus was not imaged. Impression: Extremely limited examination due to technical factors described above. If there is strong clinical concern direct visualization with upper endoscopy is suggested. Signed by: Dr. Rony Engle M.D. on 03/20/2018 5:21 PM
[2018-03-20] MEDS ORDERED: PROPOFOL IV EMULSION 10 MG/ML 20 ML VIAL ONE (18:53)
[2018-03-20] MEDS ORDERED: LIDOCAINE HCL 2% LOCAL INJ 5 ML SDV VIAL INJ ONE (18:53)
[2018-03-20] MEDS ORDERED: FENTANYL CITRATE/PF 100MCG/2 ML INJ ONE (19:22)
[2018-03-20] MEDS: MEROPENEM 500 MG VIAL IV SCH (21:12)
--- NOTE | 2018-03-20 21:59 | Consultation ---
DATE OF CONSULTATION: March 20, 2018 CHIEF COMPLAINT: Abdominal pain and vomiting. HISTORY OF PRESENT ILLNESS: Patient is an 87-year-old male admitted for history of progressive abdominal pain in the epigastric area with anorexia, severe weight loss overtime, and coffee-ground vomitus just prior to admission. PAST MEDICAL HISTORY: Positive for atrial fibrillation, hypertension, hyperlipidemia, osteoarthritis, Parkinson disease, peripheral vascular disease. SURGICAL HISTORY: Positive suprapubic catheter placement. DRUG ALLERGIES: NONE. SOCIAL HABITS: No smoking or alcohol abuse. REVIEW OF SYSTEMS: No chest pain or shortness of breath. EXAM VITAL SIGNS: Stable. Afebrile. GENERAL: Patient is awake, alert, in mild discomfort. HEENT: Sclerae nonicteric. NECK: Supple. LUNGS: Clear. HEART: Regular rate and rhythm. ABDOMEN: Scaphoid. There is some guarding in epigastric area without rebound. Palpable pulsatile mass in the epigastric area consistent with aneurysmal aorta. EXTREMITIES: Without cyanosis, edema. LAB: The patient's white cell count 17, with hemoglobin of 12, and platelet count of 232,000. Creatinine is 2.0. Liver function test, bilirubin 1.3 with alkaline phosphatase 75. Ultrasound showed hydrops gallbladder with sludge. Bile duct size 1.[address] revealed 4.7-cm AAA. ASSESSMENT: Abdominal pain with coffee-ground vomitus and gallbladder hydrops and sludge seen on ultrasound. PLAN: GI service has been consulted for possible upper GI endoscopy. I will also order a HIDA scan to rule out gallbladder dysfunction. Will follow patient with you closely. Job#: [id number] CQ
[2018-03-20] MEDS ORDERED: AMIODARONE 900MG 500 ML IV SCH (22:00)
--- NOTE | 2018-03-20 23:23 | Consultation ---
DATE OF CONSULTATION: March 20, 2018 GI CONSULT NOTE REFERRING PHYSICIAN: Dr. Irene Manley REASON FOR CONSULT: 1. Postprandial nausea, vomiting, and regurgitation. 2. 85-pound weight loss in last 6 months. 3. Early satiation. 4. Upper abdominal discomfort for more than a week. HISTORY OF PRESENTING ILLNESS: [id number] white male with host of comorbidities that includes hypertension, hyperlipidemia, osteoarthritis, BPH status post suprapubic catheter, Parkinson disease, early cognitive impairment, who is currently in ICU getting intravenous amiodarone infusion for atrial fibrillation. This is being managed by cardiology service. GI is being consulted because he is complaining of upper abdominal discomfort, immediately regurgitating the food and liquids after swallowing. He is also complaining of some upper abdominal pain. CT scan was performed that showed gallstone, chronically dilated common bile duct, hydrops of the gallbladder without any radiographic signs to suggest acute cholecystitis. To evaluate food regurgitation, barium swallow was attempted, however, patient could not stand well, therefore this was extremely limited examination. No aspiration during pharyngeal phase noticed, distal esophagogram could not be obtained. The radiologist recommended direct visualization of the esophagus to rule out any strictures. Patient has not had any upper endoscopy in his life in the past. No reported history of chronic GERD. Reports no lower GI symptoms. REVIEW OF SYSTEMS: Twelve-point system reviewed, symptomatology is limited as per HPI. PAST MEDICAL HISTORY: Paroxysmal atrial fibrillation with remote history of cardioversion, hyperlipidemia, osteoarthritis, diverticulosis, BPH status post suprapubic catheter placement, Parkinson disease, cognitive impairment, peripheral arterial disease, stable large aortic aneurysm, hyperthyroidism, idiopathic pulmonary fibrosis. PAST SURGICAL HISTORY: Suprapubic catheter placement, cardioversion in the past. FAMILY HISTORY: Noncontributory given his advanced age. Negative for any GI or [employer] malignancies. SOCIAL HISTORY: No smoking, alcohol, or any illicit drug use. ALLERGIES: NONE. HOME MEDICATIONS: Atorvastatin, carbidopa/levodopa, finasteride, fluticasone/salmeterol spray, furosemide 20 mg daily, metoclopramide 10 mg a.c./at bedtime, omeprazole 40 mg daily, pantoprazole 40 mg daily, potassium chloride 20 mEq daily, pregabalin 25 mg daily, propranolol 20 mg daily, ropinirole 0.25 mg nightly. INPATIENT MEDICATION LIST: Reviewed. He is not on any anticoagulation. PHYSICAL EXAMINATION: VITAL SIGNS: Temperature 98.8, pulse ranging from 101 to 94, respiration 18, blood pressure 114/63 to 89/60, oxygen saturation 100% on room air. GENERAL: Not in any acute distress. HEENT: Oral mucosa is moist. Anicteric sclerae. NECK: No neck or axillary adenopathy. CVS: S1 and S2 irregularly irregular with a 3/6 flow murmur. LUNGS: Bilaterally grossly clear with decreased breath sounds at bases. ABDOMEN: Soft, nondistended. No palpable epigastric or right upper quadrant tenderness. No rebound, rigidity, or guarding. Wilkins sign is negative. Bowel sounds present. EXTREMITIES: Warm. No leg edema. LABS: Sodium 141, potassium 4.0, chloride 98, bicarb 30, BUN 47, creatinine 2.07, glucose 172. Liver enzymes showed a total bilirubin 1.3, AST 13, ALT 8, and alkaline phosphatase 75. PT 14.7, INR 1.05. Urinalysis negative with RBCs 6 to 10 per high-power field, WBC 6 to 10 per high-power field. Barium swallow extremely limited examination due to technical factors described above. If there is a strong clinical concern, direct visualization with upper endoscopy is suggested. CT of the abdomen and pelvis without IV contrast showed: 1. Infrarenal abdominal aortic aneurysm measuring 4.7 cm in maximum diameter. Aneurysm measured 4.2 cm in 2016 and 3.7 cm in 2013. For an aneurysm of this size, current recommendations are for a followup imaging every 6 months with vascular consultation taking into consideration patient's clinical condition and any prior vascular consultation/recommendations. 2. Gallbladder hydrops and small gallstones, no evidence of inflammation. Chest x-ray, no acute thoracic abnormality. Abdominal ultrasound showed: 1. Palpable abnormality of the right lower quadrant corresponds to tortuous and ectatic right common iliac artery with adjacent abdominal aortic aneurysm better seen on prior CT. 2. Gallbladder hydrops and sludge. No evidence of acute cholecystitis. 3. The common bile duct is dilated to [address]s that showed the common bile duct better than today CT's demonstrate that this is stable finding since at least 2016. 4. Small and echogenic right kidney consistent with chronic medical renal disease. IMPRESSION: 1. Food regurgitation, early satiation, certainly needs further evaluation with direct visualization. 2. Chronically dilated common bile duct/gallstones without any clinical or radiographic evidence of acute cholecystitis. Surgery has been consulted. PLAN: Continue present medical management as per cardiology. Upper endoscopy tomorrow. Need cardiology clearance before performing any invasive procedure under monitored anesthesia care. I thank Dr. Manley for allowing me to participate in the care of this patient. Job#: [id number] DR CHOI
[2018-03-21] VITALS (42 sets, daily range): BP systolic 86–122; BP diastolic 46–72
[2018-03-21 04:39] LABS: EOSINOPHILS # (AUTO) 0.1 (0.0-0.4); EOSINOPHILS % 1.5 % (0.0-6.0); HEMATOCRIT 27.6 % (38.2-49.6); HEMOGLOBIN 9.2 g/dL (14.0-18.0); LYMPHOCYTES % 10.7 % (18.0-39.1); MEAN CORPUSCULAR HEMOGLOBIN 32.3 pg (28-32); MEAN CORPUSCULAR HGB CONC 33.3 g/dL (31-35); MEAN CORPUSCULAR VOLUME 96.8 fL (81-99); MONOCYTES # (AUTO) 0.8 (0.2-0.8); MONOCYTES % 8.3 % (4.4-11.3); NEUTROPHILS # (AUTO) 7.2 (2.1-6.9); NEUTROPHILS % 79.2 % (38.7-80.0); PLATELET COUNT 187 x10e3/uL (140-360); RED BLOOD COUNT 2.85 x10e6/uL (4.3-5.7)
[2018-03-21 04:51] LABS: INR 1.11; PROTHROMBIN TIME 15.3 seconds (11.9-14.5)
[2018-03-21 05:02] LABS: ALBUMIN 2.1 g/dL (3.5-5.0); ALBUMIN/GLOBULIN RATIO 0.7 (0.8-2.0); ANION GAP 12.4 mmol/L (8-16); CALCIUM 8.9 mg/dL (8.4-10.2); CREATININE, SERUM 1.77 mg/dL (0.72-1.25); MAGNESIUM 2.1 MG/DL (1.3-2.1); POTASSIUM 3.4 mmol/L (3.5-5.1)
[2018-03-21] MEDS: SODIUM CHLORIDE 0.9% 1000ML 1,000 ML IV SCH ×2 (05:30→12:00)
[2018-03-21 06:00] LABS: CHOL/HDL RATIO 4.4 (3.9-4.7)
[2018-03-21] MEDS: MEROPENEM 500 MG VIAL IV SCH ×2 (09:00→22:05)
[2018-03-21] MEDS ORDERED: POTASSIUM CHLORIDE 20MEQ/15ML UDC NG ONE (09:30)
[2018-03-21] MEDS ORDERED: SINCALIDE 3 MCG/VIAL INJ ONE (09:56)
[2018-03-21] MEDS ORDERED: DIGOXIN INJ 0.25 MG/ML 2 ML AMP IV ONE (11:45)
[2018-03-21] MEDS ORDERED: METOPROLOL TARTRATE INJ 1 MG/ML VIAL IV PRN (12:00)
--- NOTE | 2018-03-21 13:19 | Diagnostic Imaging Report ---
Hepatobiliary Scan with Gallbladder Ejection Fraction Clinical information: 87 M with abdominal pain; unintentional weight loss of 30 lb over the past 6 months. Has esophageal strictures. Abdominal ultrasound 03/19/2018 showed gallbladder hydrops and sludge. Report: Following intravenous administration of 6.7 millicuries of Tc-99m mebrofenin, dynamic images of the abdomen in the anterior projection were obtained through 50 minutes. Sincalide (CCK analog) 1.3 micrograms was administered intravenously over 30 minutes with additional imaging for determination of gallbladder ejection fraction. Perfusion to the liver is normal. Extraction of tracer from the blood pool by the liver parenchyma is normal. Tracer is seen promptly within the biliary tract. The gallbladder begins to fill by 31 minutes post-injection of tracer and fills adequately. Tracer is seen in the small bowel during the sincalide infusion. The gallbladder ejection fraction with administration of sincalide is 100% (normal greater than 40%). Impression: 1. Filling of the gallbladder excludes the diagnosis of acute cystic duct obstruction/acute cholecystitis. 2. Normal gallbladder ejection fraction of 100% does not support the clinical diagnosis of chronic cholecystitis/gallbladder dyskinesia. Signed by: Dr. Elen Lynch M.D. on 03/21/2018 1:15 PM
[2018-03-21] MEDS: METOPROLOL TARTRATE 25 MG TAB PO SCH ×2 (13:56→21:32)
[2018-03-21] MEDS: METHIMAZOLE 5 MG TAB PO SCH (13:56)
--- NOTE | 2018-03-21 18:29 | Consultation ---
DATE OF CONSULTATION: March 21, 2018 CHIEF COMPLAINT: Abdominal groin bulge and vomiting. HISTORY OF PRESENT ILLNESS: The patient is an 87-year-old male with history of intermittent vomiting for the last 2 days with a left groin bulge with discomfort. Patient was found to have an incarcerated left inguinal hernia with bowel obstruction on CT scan. The patient has no reported hematemesis or fevers. PAST MEDICAL HISTORY: Significant for atrial fibrillation, chronic renal insufficiency, abdominal aortic aneurysm. SURGICAL HISTORY: Unremarkable. DRUG ALLERGIES: NONE. SOCIAL HABITS: No history of smoking or alcohol abuse. REVIEW OF SYSTEMS: Denies chest pain or shortness of breath. EXAM VITAL SIGNS: Stable. Afebrile. DICTATION CANCELLED (01:32) Job#: [id number] CQ
[2018-03-21] MEDS: FAMOTIDINE 20 MG/2 ML VIAL IV SCH (22:05)
[2018-03-22] VITALS (60 sets, daily range): BP systolic 81–194; BP diastolic 48–118
[2018-03-22] MEDS: SODIUM CHLORIDE 0.9% 1000ML 1,000 ML IV SCH ×2 (00:07→21:54)
[2018-03-22 05:01] LABS: BASOPHILS % 0.1 % (0.0-1.0); EOSINOPHILS # (AUTO) 0.3 (0.0-0.4); EOSINOPHILS % 3.7 % (0.0-6.0); HEMATOCRIT 30.6 % (38.2-49.6); HEMOGLOBIN 9.8 g/dL (14.0-18.0); LYMPHOCYTES # (AUTO) 0.9 (1.0-3.2); LYMPHOCYTES % 11.6 % (18.0-39.1); MEAN CORPUSCULAR HEMOGLOBIN 32.3 pg (28-32); MONOCYTES # (AUTO) 0.7 (0.2-0.8); MONOCYTES % 8.6 % (4.4-11.3); NEUTROPHILS # (AUTO) 5.9 (2.1-6.9); NEUTROPHILS % 75.6 % (38.7-80.0); PLATELET COUNT 196 x10e3/uL (140-360); RED BLOOD COUNT 3.03 x10e6/uL (4.3-5.7)
[2018-03-22 05:26] LABS: ALBUMIN 2.1 g/dL (3.5-5.0); ANION GAP 13.5 mmol/L (8-16); BILIRUBIN,DIRECT 0.7 mg/dL (0.0-0.5); CREATININE, SERUM 1.26 mg/dL (0.72-1.25); POTASSIUM 4.5 mmol/L (3.5-5.1)
[2018-03-22] MEDS: METOPROLOL TARTRATE 25 MG TAB PO SCH ×3 (05:34→22:00)
[2018-03-22] MEDS: METHIMAZOLE 5 MG TAB PO SCH (08:29)
[2018-03-22] MEDS: MEROPENEM 500 MG VIAL IV SCH ×2 (08:29→21:53)
[2018-03-22] MEDS: PANTOPRAZOLE 40 MG 10ML VIAL IV SCH (18:02)
[2018-03-22] MEDS: ONDANSETRON HCL INJ 2 MG/ML VIAL IV PRN (18:42)
[2018-03-23] VITALS (60 sets, daily range): BP systolic 97–143; BP diastolic 63–110
[2018-03-23] MEDS: METOPROLOL TARTRATE 25 MG TAB PO SCH ×3 (05:37→22:00)
[2018-03-23] MEDS: METHIMAZOLE 5 MG TAB PO SCH (08:34)
[2018-03-23] MEDS: PANTOPRAZOLE 40 MG 10ML VIAL IV SCH ×2 (08:34→17:18)
[2018-03-23] MEDS: MEROPENEM 500 MG VIAL IV SCH (08:34)
[2018-03-23] MEDS: DIGOXIN 0.125 MG TAB PO SCH (12:15)
[2018-03-23] MEDS: LEVOFLOXACIN 500 MG TAB PO SCH (12:15)
--- NOTE | 2018-03-23 13:10 | Progress Note ---
DATE: March 23, 2018 GASTROENTEROLOGY PROGRESS NOTE SUBJECTIVE: Patient is feeling better today. Able to swallow soft food ever since he had upper endoscopy with esophageal dilation yesterday. Reports no chest discomfort. REVIEW OF SYSTEMS GENERAL: No fever or chills. CVS: No chest pain or palpitations. RESPIRATORY: No cough or expectoration. MEDICATIONS: Reviewed as per JUN. He is on: 1. Levofloxacin 500 mg p.o. every other day. 2. Digoxin 0.125 mg p.o. daily. 3. Pantoprazole 40 mg IV twice daily. 4. Methimazole 5 mg daily. 5. Zofran 4 mg IV q.4 h. p.r.n. 6. Metoprolol 25 mg p.o. q.8 h. 7. Metoprolol tartrate 5 mg IV q.2 h. p.r.n. for heart rate control. PHYSICAL EXAMINATION VITAL SIGNS: Temperature 98.5. Pulse ranging from 80 to 131. Respirations 18, blood pressure 126/63, oxygen saturation 100% on 2 liters of nasal cannula. GENERAL: Not in any acute distress. Thin body habitus. Low muscle mass. HEENT: Oral mucosa is moist. ABDOMEN: Soft, nondistended. Nontender. No palpable mass or hernia. Positive bowel sounds. LABS: None today. IMPRESSION 1. Esophageal dysphagia secondary to [place] class D erosive esophagitis with a partially obstructing stricture from a Schatzki's ring, status post upper endoscopy with balloon dilatation of Schatzki's ring to 18 mm. 2. Paroxysmal atrial fibrillation, not on any anticoagulation, managed by cardiology. PLAN: Continue PPI IV twice daily. He was also noted to have gastritis on upper endoscopy, gastric biopsies obtained. Pathology report is awaited. Continue soft diet. Patient needs to be on maximum acid suppressive therapy for at least 6 weeks. Repeat upper endoscopy to ensure healing of esophagitis and reassess whether the patient will need further dilatation. I have given my business card to the patient's daughter. Patient needs to see me in my office within 2 to 3 weeks after discharge. Repeat upper endoscopy will be planned accordingly as an outpatient. Job#: [id number]
[2018-03-24] VITALS: BP 123/75
[2018-03-24] MEDS ORDERED: METOPROLOL TARTRATE 25 MG TAB PO ONE (03:15)
[2018-03-24] MEDS: METOPROLOL TARTRATE 25 MG TAB PO SCH ×3 (05:25→18:00)
[2018-03-24 05:55] LABS: BASOPHILS % 0.1 % (0.0-1.0); EOSINOPHILS # (AUTO) 0.5 (0.0-0.4); EOSINOPHILS % 6.4 % (0.0-6.0); HEMOGLOBIN 10.1 g/dL (14.0-18.0); LYMPHOCYTES # (AUTO) 1.3 (1.0-3.2); LYMPHOCYTES % 17.2 % (18.0-39.1); MEAN CORPUSCULAR HEMOGLOBIN 33.1 pg (28-32); MEAN CORPUSCULAR HGB CONC 33.7 g/dL (31-35); MEAN CORPUSCULAR VOLUME 98.4 fL (81-99); MONOCYTES # (AUTO) 0.7 (0.2-0.8); MONOCYTES % 9.2 % (4.4-11.3); NEUTROPHILS # (AUTO) 4.9 (2.1-6.9); NEUTROPHILS % 66.7 % (38.7-80.0); PLATELET COUNT 192 x10e3/uL (140-360); RED BLOOD COUNT 3.05 x10e6/uL (4.3-5.7); RED CELL DISTRIBUTION WIDTH 12.7 % (11.7-14.4)
[2018-03-24 06:19] LABS: ALANINE AMINOTRANSFERASE 8 IU/L (0-55); ALBUMIN/GLOBULIN RATIO 0.7 (0.8-2.0); ALKALINE PHOSPHATASE 69 IU/L (40-150); BLOOD UREA NITROGEN 19 mg/dL (7-26); BUN/CREATININE RATIO 23 (6-25); CALCIUM 8.7 mg/dL (8.4-10.2); CARBON DIOXIDE 25 mmol/L (22-29); CHLORIDE 108 mmol/L (98-107); CREATININE, SERUM 0.82 mg/dL (0.72-1.25); EST GLOMERULAR FILTRATION RATE > 60 ML/MIN (60-); GLUCOSE 97 mg/dL (74-118); SODIUM 139 mmol/L (136-145)
[2018-03-24 09:22] VITALS: BP 126/85
[2018-03-24] MEDS: BALSAM PERU/CASTOR OIL 60 GM OINT...G. TP SCH (09:53)
[2018-03-24] MEDS: DIGOXIN 0.125 MG TAB PO SCH (09:53)
[2018-03-24] MEDS: PANTOPRAZOLE 40 MG 10ML VIAL IV SCH ×2 (09:53→17:00)
[2018-03-24] MEDS: METHIMAZOLE 5 MG TAB PO SCH (09:53)
[2018-03-24 11:56] VITALS: BP 126/85
[2018-03-24 12:00] VITALS: BP 120/66
--- NOTE | 2018-03-24 13:14 | Progress Note ---
DATE: March 24, 2018 PROGRESS NOTE I am covering today for Dr. Ham. The patient was transferred out of the intensive care unit. He states that his swallowing is better. He did sit on the edge of the bed yesterday. He cannot walk well because of his leg. PHYSICAL EXAMINATION VITAL SIGNS: The patient is afebrile. The blood pressure is 126/85, and the heart rate is 112. The saturation is 100% on 2 liters. HEENT: Examination shows no facial swelling or erythema. The oropharynx is normal. LYMPHATIC: Examination shows no submandibular, cervical or supraclavicular adenopathy. CARDIAC: Exam reveals a regular rate and rhythm with a normal S1 and S2. There are no murmurs or rubs. ABDOMEN: Soft and nontender. There is a urinary catheter in place. EXTREMITIES: Examination shows some deformity of the left leg. LABORATORY DATA: The OFR-ww-qcllwsulbi ratio is normal. The other electrolytes are within normal limits. The hemoglobin is 10.1, and the white blood cell count is 7.38. The platelet count is 192. IMPRESSION 1. Esophageal dysphasia and esophageal stricture. 2. Paroxysmal atrial fibrillation. 3. Chronic urinary retention. 4. Anemia, unspecified. 5. Moderate protein calorie malnutrition. PLAN 1. Continue to monitor nutritional needs and swallowing function. 2. Continue current cardiac regimen. 3. Physical therapy. 4. DVT prophylaxis in the form of sequential venous compression devices. Case was discussed with the patient and with Case Management. Job#: [id number] EV MTDMehran
[2018-03-24 17:38] VITALS: BP 131/83
[2018-03-24 20:00] VITALS: BP 107/66
[2018-03-25] VITALS: BP 114/71
--- NOTE | 2018-03-25 03:53 | Progress Note ---
DATE: March 24, 2018 SUBJECTIVE: Patient reports no abdominal pain. Tolerating oral feeds. He has no more difficulty in swallowing food. He has not had any bowel movement today. REVIEW OF SYSTEMS CVS: No chest pain or palpitation. GENERAL: No fever or chills. RESPIRATORY: No cough or expectoration. MEDICATIONS: Reviewed in the MAR. PHYSICAL EXAMINATION VITAL SIGNS: Temperature 96.7, pulse 90, respirations 18, blood pressure 114/71, and oxygen saturation 97% on 2 liters of nasal cannula. GENERAL: Not in any acute distress. Elderly, frail, thin body habitus, low muscle mass. Oral mucosa is moist. ABDOMEN: Soft, nondistended, and nontender. No masses or hernia. Positive bowel sound. LABS: WBC 7.38, hemoglobin 10.1, hematocrit 30, and platelet count 192. Sodium 139, potassium 5.0, chloride 109, bicarbonate 25, BUN 19, and creatinine 0.82. Liver enzymes: AST 12, ALT 8, alkaline phosphatase 69, and total bilirubin 0.9. IMPRESSION: Esophageal dysphagia secondary to esophageal stricture from Schatzki's ring and [place] class D erosive esophagitis. PLAN: Continue PPI twice daily. Can switch pantoprazole 40 mg IV twice daily to 40 mg twice daily orally upon discharge. The patient needs a colonoscopy in 6 weeks after 6 weeks of at least acid suppressive therapy. Job#: [id number] MARCELLE
[2018-03-25 04:00] VITALS: BP 143/75
[2018-03-25] MEDS: METOPROLOL TARTRATE 25 MG TAB PO SCH ×3 (05:41→12:04)
[2018-03-25 07:56] VITALS: BP 117/58
[2018-03-25] MEDS: DIGOXIN 0.125 MG TAB PO SCH (08:21)
[2018-03-25] MEDS: PANTOPRAZOLE 40 MG 10ML VIAL IV SCH (08:21)
[2018-03-25] MEDS: METHIMAZOLE 5 MG TAB PO SCH (08:21)
[2018-03-25] MEDS: BALSAM PERU/CASTOR OIL 60 GM OINT...G. TP SCH (08:22)
[2018-03-25] MEDS ORDERED: POLYETHYLENE GLYCOL 3350 17 GM PACK PO SCH (09:00)
[2018-03-25] MEDS: LEVOFLOXACIN 500 MG TAB PO SCH (12:04)
[2018-03-25 12:54] VITALS: BP 103/64
[2018-03-25 12:56] VITALS: BP 103/64
[2018-03-25] MEDS ORDERED: METOPROLOL TART50 MG PO (14:25)
--- NOTE | 2018-03-25 18:03 | Discharge Summary ---
DISCHARGE DIAGNOSES 1. Esophageal stricture and dysphagia. 2. Chronic atrial fibrillation. 3. Parkinson's disease. 4. Chronic urinary retention. 5. Anemia unspecified. 6. Moderate protein-calorie malnutrition. CONSULTING PHYSICIANS 1. Dr. Fairbanks of Gastroenterology 2. Dr. Manley of Cardiology. 3. Dr. Holguin of General Surgery. PROCEDURE: Upper endoscopy with esophageal dilatation. RADIOGRAPHIC STUDIES 1. Chest x-ray showed no active disease. 2. CT scan of the abdomen and pelvis showed infrarenal aortic aneurysm measuring 4.7 cm. Small gallstones were also seen. HISTORY OF PRESENT ILLNESS: The patient is an 87-year-old man. He has a history of hypertension and chronic atrial fibrillation. He came in complaining of upper abdominal discomfort. He also noted some difficulty swallowing. HOSPITAL COURSE: The patient was admitted. He was started on IV antibiotics. He was seen in consultation with Cardiology. Recommended to continue his current therapy. He was also seen by Gastroenterology. Subsequent evaluation showed an esophageal stricture. He underwent an endoscopy with esophageal dilatation. He felt better with this and was able to swallow well after the procedure. He was very eager to go home. DISPOSITION: The patient will be discharged home and will follow up with Paulina as well as with Dr. Fairbanks of Gastroenterology. JUAN ALBERTO ALEXANDER MD Job#: [id number] [place]
== END 2018-03-25 15:06 | disposition home or self-care (01) | DRG 698 ==
LOC: ER 19:21 → ERHOLD 03-20 00:33 → ICU 03-20 02:05 → MED/SURG 03-23 21:06
PROVIDERS: ADMIT Internal Medicine; ATTEND Internal Medicine
PROC: 0DB68ZX Excision of Stomach, Via Natural or Artificial Opening Endoscopic, Diagnostic (ICD-10-PCS; principal; 2018-03-22 16:02)
PROC: 0D738ZZ Dilation of Lower Esophagus, Via Natural or Artificial Opening Endoscopic (ICD-10-PCS; 2018-03-22 16:02)
DX: T83.511A Infection and inflammatory reaction due to indwelling urethral catheter, initial encounter (principal); A41.9 Sepsis, unspecified organism; R65.20 Severe sepsis without septic shock; N17.9 Acute kidney failure, unspecified; K82.1 Hydrops of gallbladder; K22.10 Ulcer of esophagus without bleeding; I48.2 Chronic atrial fibrillation; K80.20 Calculus of gallbladder without cholecystitis without obstruction; I71.4 Abdominal aortic aneurysm, without rupture; I10 Essential (primary) hypertension; E78.5 Hyperlipidemia, unspecified; G20 Parkinson's disease; F03.90 Unspecified dementia, unspecified severity, without behavioral disturbance, psychotic disturbance, mood disturbance, and anxiety; N40.0 Benign prostatic hyperplasia without lower urinary tract symptoms; Z82.49 Family history of ischemic heart disease and other diseases of the circulatory system; Z79.01 Long term (current) use of anticoagulants; K80.80 Other cholelithiasis without obstruction; E78.00 Pure hypercholesterolemia, unspecified; E05.90 Thyrotoxicosis, unspecified without thyrotoxic crisis or storm; Z93.50 Unspecified cystostomy status; R11.2 Nausea with vomiting, unspecified; R68.81 Early satiety; K22.2 Esophageal obstruction; K44.9 Diaphragmatic hernia without obstruction or gangrene; K21.0 Gastro-esophageal reflux disease with esophagitis; K29.70 Gastritis, unspecified, without bleeding; K29.80 Duodenitis without bleeding; R62.7 Adult failure to thrive; B96.20 Unspecified Escherichia coli [E. coli] as the cause of diseases classified elsewhere; B96.89 Other specified bacterial agents as the cause of diseases classified elsewhere; B95.2 Enterococcus as the cause of diseases classified elsewhere; L89.151 Pressure ulcer of sacral region, stage 1
CPT/HCPCS: 36415; 43233; 43239; 71045; 74176; 74220; 76705; 78227; 80048; 80053; 80061; 80076; 81001; 82550; 82553; 83605; 83690; 83735; 83880; 84100; 84443; 84484; 85025; 85610; 85730; 86850; 86900; 87040; 87086; 87186; 88305; 88312; 93005; 93306; 96361; 96365; 96366; 97139; 99284; A9537; J1160; J2001; J2185; J2405; J2805; J3370; J7030